=== PATIENT | male | born 1965 | race Caucasian/White ===

== ENCOUNTER 2023-03-12 16:48 | Emergency (ER) | payer OTHER, SELFPAY ==
[2023-03-12 16:52] VITALS: BP 153/89; PULSE 60; RESP 16; TEMP 36.8; O2SAT 98; BMI 40.7
--- NOTE | 2023-03-12 16:59 | ED.WOUNDLAC1 ---
HPI - Wound/Laceration General Chief Complaint: Wound/Laceration Stated Complaint: BWC - LACERATION/PUNCTURE Time Seen by Provider: 03/12/23 16:53 Source: patient Mode of arrival: walk-in History of Present Illness HPI narrative: patient is a 57-year-old male who presents to the emergency department for the evaluation of lacerations to the lower lip and the left cheek. Patient states he was to [employer] at work when the cord snapped and the hook of the bungee cord caught him in the mouth and face. He had no other associated injuries. Unknown last tetanus. No medications taken prior to arrival. Bleeding is well-controlled at this time. He denies any injuries to the teeth or tongue. He denies any pain with movement of the eyes. Related Data Allergies Allergy/AdvReac Type Severity Reaction Status Date / Time No Known Drug Allergies Allergy Verified 03/12/23 16:52 Review of Systems ROS Constitutional Denies: fever or chills Ears, nose, mouth, and throat Denies: throat pain or neck pain Respiratory Denies: shortness of breath Gastrointestinal Denies: nausea or vomiting Musculoskeletal Denies: back pain Integumentary/Breast Denies: rash Hematologic/Lymphatic Denies: easy bruising Exam Narrative Exam Narrative: Gen.: Awake, alert, in no distress Head: Normocephalic, no injury to the eyes or orbits noted. ENT: 1 cm laceration of the left lower lip, extending across the vermilion border. Laceration is gapped approximately 1 cm. No through and through laceration of the lip noted. No injury to the teeth or nose. 1.5 cm laceration of the left cheek with no surrounding maxillary swelling or ecchymosis. Normal extraocular muscle motion. Respiratory: No respiratory distress Extremities: Moves extremities equally Psych: Normal mood and affect Neuro: No focal neuro deficit Skin: Warm, dry Constitutional Vital Signs, click to edit/add: Last Vital Signs Temp 98.2 F 03/12/23 16:52 Pulse 60 03/12/23 16:52 Resp 16 03/12/23 16:52 BP 153/89 H 03/12/23 16:52 Pulse Ox 98 03/12/23 16:52 O2 Del Method Room Air 03/12/23 16:52 Course Vital Signs Vital signs: Vital Signs Temperature 98.2 F 03/12/23 16:52 Pulse Rate 60 03/12/23 16:52 Respiratory Rate 16 03/12/23 16:52 Blood Pressure 153/89 H 03/12/23 16:52 Pulse Oximetry 98 03/12/23 16:52 Oxygen Delivery Method Room Air 03/12/23 16:52 Temperature 98.2 F 03/12/23 16:52 Pulse Rate 60 03/12/23 16:52 Respiratory Rate 16 03/12/23 16:52 Blood Pressure 153/89 H 03/12/23 16:52 Pulse Oximetry 98 03/12/23 16:52 Oxygen Delivery Method Room Air 03/12/23 16:52 MDM - Wound/Laceration MDM Narrative Medical decision making narrative: laceration repaired without difficulty. Please see procedure note for details. Sutures will need to be removed in one week with occupational health. Return to the emergency department if symptoms change or worsen. Tetanus updated in the Emergency Room. Laceration repair: Done under sterile conditions. The use of Shur-Clens prep the area to the left cheek, saline was used to flush and irrigate the lower lip.. Local injection with lidocaine 1% was used, approximately 2 mL to each laceration. The wound was explored there was no evidence of foreign material. The laceration was approximated with 5-0 nylon. 3 simple interrupted sutures were placed in the lower lip laceration, taking care to approximate 1 suture across the vermilion border with good alignment. Three simple interrupted sutures were placed to the left cheek laceration. Patient tolerated the procedure well. The patient was neurovascularly intact post. the patient had bacitracin applied to the laceration. The patient will need to follow-up in the next 7 days for removal Medical Records Attestation: I reviewed the patient's medical records. Discharge Plan Discharge Chief Complaint: Wound/Laceration Clinical Impression: Face lacerations Patient Disposition: Home, Self-Care Time of Disposition Decision: 17:40 Condition: Good Instructions: Laceration (ED) Additional Instructions: Have sutures removed in 7 days with occupational/industrial health; call tomorrow to schedule appointment Stand Alone Forms: Portal Instructions Referrals: [facility] [Outside] - 1 week
[2023-03-12] MEDS: LIDOCAINE HCL 1% 100 MG/10 ML MDV INJ (17:48)
[2023-03-12] MEDS: ADACEL DIPH,PERTUSS(ACELL),TET VAC/PF 0.5 ML ADULT SYRINGE IM (17:49)
== END 2023-03-12 17:41 | disposition home or self-care (01) ==
PROVIDERS: Emergency Provider Emergency Medicine
DX: S01.511A Laceration without foreign body of lip, initial encounter (principal); S01.412A Laceration without foreign body of left cheek and temporomandibular area, initial encounter; W22.8XXA Striking against or struck by other objects, initial encounter; Z23 Encounter for immunization
CPT/HCPCS: 12011; 90471; 90715; 99283